=== PATIENT | male | born 1965 | race Caucasian/White ===

== ENCOUNTER 2018-09-22 12:17 | Emergency (ER) | payer OTHER ==
[2018-09-22] MEDS: HYDROCODONE/APAP (5/325) TAB PO (14:27)
[2018-09-22] MEDS: ONDANSETRON (ODT) 4 MG TAB ODT (14:28)
== END 2018-09-22 14:48 | disposition home or self-care (01) ==
LOC: FTE 14:48
DX: M54.9 Dorsalgia, unspecified (principal); R06.02 Shortness of breath; R42 Dizziness and giddiness
CPT/HCPCS: 71045; 71100; 72125; 72131; 74176; 93005; 99285-25